=== PATIENT | female | born 1955 | race African-American/Black ===

== ENCOUNTER 2021-01-18 11:48 | Emergency (ER) | payer MEDICARE, MEDICAID ==
[~2021-01-18] VITALS: Ht 170.2 cm; Wt 93.0 kg
[2021-01-18] MEDS ORDERED: IBUPROFEN 600MG TABLET PO ONE (13:15)
[2021-01-18 13:19] VITALS: BP 128/93
== END 2021-01-18 13:28 | disposition home or self-care (01) ==
LOC: ER 11:48
DX: D17.24 Benign lipomatous neoplasm of skin and subcutaneous tissue of left leg (principal)
CPT/HCPCS: 99282